=== PATIENT | female | born 1950 | race Caucasian/White ===

== ENCOUNTER 2018-08-21 12:36 | Inpatient (IN) ==
[2018-08-21] MEDS ORDERED: ONDANSETRON INJ 2 MG/ML 2 ML VIAL IV STA (13:05)
[2018-08-21] MEDS ORDERED: SODIUM CHLORIDE 0.9% 1000ML 1,000 ML IV ONE (13:05)
[2018-08-21 13:38] LABS: Basophils # (auto) 0.04 K/uL (0-0.2); Basophils % (auto) 0.6 %; Eosinophils # (auto) 0.05 K/uL (0-0.5); Eosinophils % (auto) 0.8 %; Hemoglobin 12.7 g/dL (12.0-16.0); Immature Granulocytes # (auto) 0.02 K/uL (0.00-0.02); Immature Granulocytes % (auto) 0.3 %; Lymphocytes # (auto) 1.32 K/uL (1.2-3.4); Lymphocytes % (auto) 21.3 %; Mean Corpuscular Hgb Conc 34.3 g/dL (32-36); Mean Platelet Volume 9.5 fL (7.4-10.4); Monocytes # (auto) 0.43 K/uL (0.11-0.59); Monocytes % (auto) 6.9 %; Neutrophils # (auto) 4.35 K/uL (1.4-6.5); Neutrophils % (auto) 70.1 %; Platelet Count 450 K/uL (130-400); RDW Coefficient of Variation 12.7 % (11.5-14.5); RDW Standard Deviation 35.1 fL (36.4-46.3); Red Blood Count 4.87 M/uL (4.2-5.4); White Blood Count 6.21 K/uL (4.8-10.8)
[2018-08-21 13:54] LABS: Albumin Level 3.8 gm/dl (3.4-5.0); BUN Creatinine Ratio 16.6 (10-20); Calcium 9.8 mg/dl (8.5-10.1); Est GFR (African American) 66.1
[2018-08-21 13:57] LABS: Bilirubin,Total 0.6 mg/dl (0.2-1); Globulin 3.9 gm/dl (2.5-4.0); Total Protein 7.7 gm/dl (6.4-8.2)
[2018-08-21 14:20] LABS: Appearance Urine Clear (Clear); Bilirubin Urine Negative (Negative); Blood Urine Negative (Negative); Color Urine Yellow; Glucose Urine UA Negative (Negative); Ketones Urine Negative (Negative); Leukocyte Esterase Urine Negative (Negative); Nitrite Urine Negative (Negative); Protein Urine Negative (Negative); Specific Gravity Urine 1.007 (1.000-1.030); Urobilinogen Urine Negative (Negative); pH Urine 7.5 (4.5-7.5)
--- NOTE | 2018-08-21 14:48 | XRay Report ---
XR abdomen 2V w PA chest CLINICAL HISTORY: 68 years-old Female presenting with vomiting and nausea. TECHNIQUE: PA view of the chest and supine and upright views of the abdomen were obtained. COMPARISON: None. FINDINGS: Over exposure of the PA chest portion of the exam. This limits diagnostic sensitivity of the chest ra diograph. Atherosclerosis of the aortic arch. Cardiac silhouette top normal in size. No focal opacity. No large effusion or pneumothorax. Surgical clips project at the thoracic inlet. Moderate stool burden. Nonobstructive bowel gas pattern. No gross pneumoperitoneum. Multiple calcified degenerating fibroids suggested in addition to atherosclerotic calcification. [place] pelvic phleboliths. No radiographic evidence of renal calculi. Evaluation for ureteral calculi l imited. Posterior lumbar fusion hardware. Degenerative changes of the sacroiliac joints. Two screw fixation i n the superior left acetabulum. Bilateral total hip arthroplasties. Scoliotic curvature and degenerat helena change of the lumbar spine. IMPRESSION: 1. Over exposure of the PA chest portion of the exam. This limits diagnostic sensitivity of the ches t radiograph. Allowing for this, no acute cardiopulmonary disease. 2. No radiographic evidence of acute intra-abdominal pathology. Electronically signed by: Henry Ferrer M.D. 08/21/2018 2:47 PM
--- NOTE | 2018-08-21 15:27 | History & Physical Report ---
Date of Service August 21, 2018 Assessment & Plan (1) Hyponatremia: This is a 68yo F with a PMH of recent thyroidectomy in June 2018 on Synthroid, HTN, asthma, chronic back pain on narcotics, osteoporosis and other problems listed below who presents with nausea and vomiting x 3 days and was fo und to have hyponatremia and hypokalemia. -Sodium of 124, potassium 3.0, chloride 81. Nausea & vomiting x 3 days -No known history of hyponatremia -Started on dexamethasone in case of adrenal insufficiency -Serum osm, urine osm, urine sodium pending. AM cortisol tomorrow -Received 1 L NSS in ED as well as 40 mEq KCl -Repeat BMP pending to reassess electrolytes (2) Hypokalemia: Replaced. Mag is normal at 2 (3) Acquired hypothyroidism: S/p thyroidectomy in June 2018 due to thyroid nodules -On levothyroxine 100 mcg -TSH wnl (4) HTN (hypertension): Normotensive -Continue enalaprim (5) Asthma: Stable. Continue Advair, albuterol PRN (6) Chronic low back pain: Home MS Contin ER and IR -Continue (7) Osteoporosis: Forteo injection daily, D2 50,000u every Tuesday (8) Anxiety: Valium BID PRN DVT Ppx: SQ Lovenox Code status: FULL PCP: [facility] [place] (unassigned) Dispo: Admitted to [facility]. Plan to return home once medically stable. Patient seen in collaboration with Dr. Hussein. Please see addendum. History of Present Illness Chief Complaint: nausea, vomiting, abnormal lab work Primary Care Provider: Lyudmila Antunez MD This is a 68yo F with a PMH of recent thyroidectomy in June 2018 on Synthroid, HTN, asthma, chronic back pain on narcotics, osteoporosis and other problems listed below who presents with nausea and vomiting x 3 days. Patient lives in [place] and is on an RV trip to [place]. Patient's retread supervisor called to notify regarding abnormal lab work (hyponatremia, hypochloremia) and directed patient to stop at a nearby ER. Patient has been nauseous with multiple bouts of vomiting over the past few days. Denies any fever, chills, confusion or abdominal pain. Had some constipation last week but took Dulcolax and is been having small but normal bowel movements. Does not think she has had low sodium in the past. Has not been eating regular amounts for the past week due to fear that she will feel nauseous and vomit. Feels thirsty most of the time, which is not new. Denies any lightheadedness, headache, chest pain, palpitations, shortness of breath, dysuria or lower extremity swelling. Allergies Allergy/AdvReac Type Severity Reaction Status Date / Time bee venom protein (honey bee) Allergy Anaphylaxis Verified 08/21/18 14:23 cefaclor [From Ceclor] Allergy Anaphylaxis Verified 08/21/18 14:23 cephalexin [From Keflex] Allergy Anaphylaxis Verified 08/21/18 14:23 Iodinated Contrast- Oral and Allergy Anaphylaxis Verified 08/21/18 14:23 IV Dye Penicillins Allergy Anaphylaxis Verified 08/21/18 14:23 tramadol [From Ultram] Allergy Anaphylaxis Verified 08/21/18 14:23 Home Medications Home Medications Medication Instructions Recorded Confirmed Type albuterol sulfate 2 puff INHALATION QID PRN 08/21/18 08/21/18 History cyclosporine [Restasis] 1 drp OPHTHALMIC (EYE) Q12H PRN 08/21/18 08/21/18 History diazepam 5 mg PO BID PRN 08/21/18 08/21/18 History enalapril maleate 20 mg PO DAILY 08/21/18 08/21/18 History ergocalciferol (vitamin D2) 50,000 unit PO WK 08/21/18 08/21/18 History [Vitamin D2] fluticasone propion-salmeterol 2 ea INHALATION BID 08/21/18 08/21/18 History [Advair Diskus] fluticasone propionate [Flonase 2 spray INTRANASAL DAILY 08/21/18 08/21/18 History Allergy Relief] imiquimod 1 applic TOPICAL UD 08/21/18 08/21/18 History levothyroxine 100 mcg PO DAILY 08/21/18 08/21/18 History morphine 30 mg PO Q6H PRN 08/21/18 08/21/18 History morphine 60 mg PO DAILY PRN 08/21/18 08/21/18 History teriparatide [Forteo] 20 mcg SUBCUT DAILY 08/21/18 08/21/18 History Past Med/Surg History Medical History Acquired hypothyroidism (Chronic) Anxiety (Chronic) Asthma (Chronic) Osteoporosis (Chronic) HTN (hypertension) (Chronic) Chronic low back pain (Chronic) Surgical History History of knee replacement (Chronic) H/O thyroidectomy (Chronic) June 2018 S/P hip replacement (Chronic) Family History Other Heart disease Thyroid cancer Social History Preferred Language: Palestinian Communication Ability: Effective Visual Impairment: No Limitations Hearing Ability: Normal Current Living Situation: Spouse Feels Safe at Home: Yes Smoking Status: Former smoker Hx Alcohol Use: No Hx Substance Use: No Review of Systems Review of Systems: At least ten systems reviewed and negative except as noted in the HPI. Physical Exam Physical Exam: General Appearance: WD/WN, no apparent distress, resting comfortably Head: normocephalic, atraumatic Eyes: normal inspection, PERRL, EOMI ENT: hearing grossly normal, pharynx normal (dry mucous membranes) Neck: supple, no JVD, no adenopathy Respiratory/Chest: lungs clear to auscultation. No wheezes, rales or rhonci. No respiratory distress or accessory muscle use Cardiovascular: regular rate, rhythm, no murmur, normal peripheral pulses Abdomen/GI: normal bowel sounds, soft, non-tender to palpation Extremities/Musculoskelatal: normal inspection, no calf tenderness, normal capillary refill, no pedal edema Neurologic/Psych: alert, normal mood/affect, oriented x 3 Skin: normal color, warm/dry Results & Data Vital Signs (Past 12 Hours) Vital Signs Temp Pulse Pulse Resp BP BP Pulse Ox 08/21/18 14:07 78 22 106/65 95 08/21/18 14:06 94 08/21/18 12:39 36.7 C 94 H 20 120/68 94 Laboratory Results Short CBC 08/21/18 Range/Units 13:26 WBC 6.21 (4.8-10.8) K/uL Hgb 12.7 (12.0-16.0) g/dL Hct 37.0 (37-47) % Plt Count 450 H (130-400) K/uL BMP 08/21/18 13:26 Sodium 124 L Potassium 3.0 L Chloride 81 L Carbon Dioxide 33 H BUN 17 Creatinine 1.00 Glucose 111 H Calcium 9.8 Liver Function 08/21/18 Range/Units 13:26 Total Bilirubin 0.6 (0.2-1) mg/dl AST 23 (15-37) U/L ALT 21 (12-78) U/L Alkaline Phosphatase 83 (45-117) U/L Albumin 3.8 (3.4-5.0) gm/dl Urine 08/21/18 Range/Units 14:09 Urine Color Yellow Urine Appearance Clear (Clear) Urine pH 7.5 (4.5-7.5) Ur Specific [place] 1.007 (1.000-1.030) Urine Protein Negative (Negative) Urine Glucose (UA) Negative (Negative) Diagnostic Findings Chest/abdomen XR: IMPRESSION: 1. Over exposure of the PA chest portion of the exam. This limits diagnostic sensitivity of the chest radiograph. Allowing for this, no acute cardiopulmonary disease. 2. No radiographic evidence of acute intra-abdominal pathology. ECG Rhythm: normal sinus Findings: + left axis deviation Supervising Physician Co-Signing Physician Notes I have seen and examined the patient with physician certified physician's assistant and agree with the assessment and plan as above and would like to comment that this is a 68 year old Female with known history of hypothyroidism who was informed of lab abnormalities by her retread supervisor while patient was traveling through [place] on vacation. Patient reports that she has been having poor appetite and inability to keep down food or water as in the recent past and she felt her health had changed since before the Weekend when she first became unwell. She denies recent fevers. no diarrhea. she has chronic joint pains On exam General: no acute distress Lunges: clear to auscultation bilaterally Heart : regular rate and rhythm Abdomen: soft, nontender, positive bowel sounds Extremities: no edema Hyponatremia: will likely continue IV fluids based on repeat labs Hypokalemia: will continue potassium repletion to get potassium to near goal of 4 Hypothyroidism: continue home dose levothyroxine Other management of health issues as above as documented by physician certified physician's assistant
[2018-08-21] MEDS ORDERED: POTASSIUM CHLORIDE 20 MEQ TABCR PO STA (15:41)
[2018-08-21] MEDS ORDERED: ACETAMINOPHEN 325 MG TAB PO PRN (17:20)
[2018-08-21] MEDS ORDERED: MoRPHine SULFATE IR 15 MG TAB (IMMEDIATE RELEASE) PO PRN (17:20)
[2018-08-21] MEDS ORDERED: diazePAM 5 MG TABLET PO PRN (17:20)
[2018-08-21] MEDS ORDERED: ONDANSETRON INJ 2 MG/ML 2 ML VIAL IV PRN (17:20)
[2018-08-21] MEDS ORDERED: ALBUTEROL HFA 8 GM INHALER INH PRN (17:20)
[2018-08-21] MEDS ORDERED: POLYETHYLENE (MIRALAX) 17 GM PACK PO PRN (17:20)
[2018-08-21] MEDS ORDERED: dexAMETHasone 4 MG in SYRINGE 0 ML IV ONE (17:30)
[2018-08-21 18:51] LABS: Calcium 9.2 mg/dl (8.5-10.1); Est GFR (African American) 72.2; Est GFR (Non-African American) 62.3; Potassium 3.8 mmol/L (3.5-5.1)
--- NOTE | 2018-08-21 19:11 | Emergency Department Note ---
Entered by Deloris Lopez acting as a scribe for Blayne Naranjo DO History of Present Illness General Chief complaint: Abnormal Labs/Diagnostic Testing Stated complaint: LOW SODIUM Source: patient Mode of arrival: ambulatory Limitations: no limitations History of Present Illness Onset (ago): day(s) 2 Location: abdomen Pain Consistency: + other (episode) Quality: + other (dizziness, lightheadeness) Associated symptoms: + loss of appetite, + nausea/vomiting (The patient complains of vomiting. ) and + other (The patient denies abdominal pain, urinary symptoms, and rhinorrhea. ); no chest pain, no cough and no shortness of breath The patient is a 68 year old female with a history of thyroidectomy, hip rep lacement, knee replacements, osteoporosis, hypertension, and chronic low back pain who presents to the ED with complaints of an episode of abnormally low sodium labs that onset 2 days ago. She states that she is traveling from [place]. The patient reports that she received a call from her laboratory apparatus glass grinder regarding blood work that was completed 3 days ago. The patient notes that she fasted before the blood work and developed the symptoms after. The patient complains of vomiting for 2 days and loss of appetite. She notes that she has been able to keep fluids down. The patient complains of dizziness and lightheadedness. The patient denies abdominal pain, urinary symptoms, cough, rhinorrhea, chest pain, and shortness of breath. The patient notes that her last bowel movement was this morning. She denies recent sick contacts. Home Medications Home Medications Medication Instructions Recorded Confirmed Type albuterol sulfate 2 puff INHALATION QID PRN 08/21/18 08/21/18 History cyclosporine [Restasis] 1 drp OPHTHALMIC (EYE) Q12H PRN 08/21/18 08/21/18 History diazepam 5 mg PO BID PRN 08/21/18 08/21/18 History enalapril maleate 20 mg PO DAILY 08/21/18 08/21/18 History ergocalciferol (vitamin D2) 50,000 unit PO WK 08/21/18 08/21/18 History [Vitamin D2] fluticasone propion-salmeterol 2 ea INHALATION BID 08/21/18 08/21/18 History [Advair Diskus] fluticasone propionate [Flonase 2 spray INTRANASAL DAILY 08/21/18 08/21/18 History Allergy Relief] imiquimod 1 applic TOPICAL UD 08/21/18 08/21/18 History levothyroxine 100 mcg PO DAILY 08/21/18 08/21/18 History morphine 30 mg PO Q6H PRN 08/21/18 08/21/18 History morphine 60 mg PO DAILY PRN 08/21/18 08/21/18 History teriparatide [Forteo] 20 mcg SUBCUT DAILY 08/21/18 08/21/18 History Allergies Allergy/AdvReac Type Severity Reaction Status Date / Time bee venom protein (honey bee) Allergy Anaphylaxis Verified 08/21/18 14:23 cefaclor [From Ceclor] Allergy Anaphylaxis Verified 08/21/18 14:23 cephalexin [From Keflex] Allergy Anaphylaxis Verified 08/21/18 14:23 Iodinated Contrast- Oral and Allergy Anaphylaxis Verified 08/21/18 14:23 IV Dye Penicillins Allergy Anaphylaxis Verified 08/21/18 14:23 tramadol [From Ultram] Allergy Anaphylaxis Verified 08/21/18 14:23 Past Med/Surg History Medical History Acquired hypothyroidism (Chronic) Anxiety (Chronic) Asthma (Chronic) Osteoporosis (Chronic) HTN (hypertension) (Chronic) Chronic low back pain (Chronic) Surgical History History of knee replacement (Chronic) H/O thyroidectomy (Chronic) June 2018 S/P hip replacement (Chronic) Family History Other Heart disease Thyroid cancer Social History Preferred Language: Slovak Communication Ability: Effective Visual Impairment: No Limitations Hearing Ability: Normal Amortization Schedule Clerk Required: No Beliefs That Will Affect Care: None Current Living Situation: Spouse Other Information That Helps Us Care for You: No Feels Safe at Home: Yes Safety Concerns: Feels Safe At This Time Smoking Status: Former smoker Hx Alcohol Use: No Hx Substance Use: No Review of Systems See HPI for pertinent positives & negatives. and A total of 10 systems reviewed and were otherwise negative Physical Exam Vital Signs Vital Signs - 24 hr 08/21/18 12:39 08/21/18 14:06 08/21/18 14:07 Temperature 36.7 C Temperature Source Oral Sepsis Recent Fever Within 48 Hours No Sepsis New/Unexplained Change in Mental Status No Sepsis Action Taken by Nursing No Action Required Pulse Rate 94 H Pulse Rate [Apical] 78 Respiratory Rate 20 22 Respiratory Effort / Characteristics Non-Labored Spontaneous Respiratory Depth Normal Respiratory Pattern Regular Blood Pressure 120/68 Blood Pressure [Right Arm] 106/65 Blood Pressure Mean 85 Blood Pressure Mean [Right Arm] 78 Blood Pressure Position Sitting Pulse Oximetry 94 94 95 Oxygen Delivery Method Room Air Room Air Room Air GENERAL: Sitting up in bed. Alert, well appearing, well nourished, no distress, non-toxic EYE EXAM: Normal conjunctiva. PERRL and EOM's grossly intact OROPHARYNX: no exudate, no erythema, lips, buccal mucosa, and tongue normal and mucous membranes are dry. NECK: supple, no nuchal rigidity, no adenopathy, non-tender LUNGS: Clear to auscultation. Normal chest wall mechanics HEART: no murmurs, S1 normal and S2 normal ABDOMEN: abdomen soft, non-tender, normo-active bowel sounds, no masses, no rebound or guarding. BACK: Back is symmetrical on inspection and there is no deformity, no midline tenderness, no CVA tenderness. SKIN: no rashes and no bruising UPPER EXTREMITIES: upper extremities are grossly normal. LOWER EXTREMITIES: No pitting edema. NEURO EXAM: Normal sensorium, cranial nerves II-XII grossly intact, normal speech, no gross weakness of arms, no gross weakness of legs. Course 1254: Past medical records reviewed. The patient was evaluated in room B09. A complete history and physical examination was performed. 1439: I have re-evaluated the patient. 1430: I reviewed the patient's case with Dr. Jaden Romeo. He will evaluate the patient for further management. Consultations Consultation #1: 1430: I reviewed the patient's case with Dr. Jaden Romeo. He will evaluate the patient for further management. Time: 14:30 Administered Medications Discontinued Medications Sodium Chloride (Nss 1000ml) 1,000 mls @ 999 mls/hr IV .Q1H1M ONE Stop: 08/21/18 14:05 Last Infusion: 08/21/18 15:03 Dose: 0 mls/hr Documented by: [id number] Admin: 08/21/18 14:02 Dose: 999 mls/hr Documented by: [id number] Dexamethasone 4 mg/ Syringe 1 mls @ 1 mls/min IV 1730 ONE Stop: 08/21/18 17:31 Last Admin: 08/21/18 18:33 Dose: 1 mls/min Documented by: [id number] Ondansetron HCl (Zofran) 4 mg IV NOW STA Stop: 08/21/18 13:06 Last Admin: 08/21/18 14:00 Dose: 4 mg Documented by: [id number] Potassium Chloride (Klor-Con M20) 40 meq PO NOW STA Stop: 08/21/18 15:42 Last Admin: 08/21/18 16:39 Dose: 40 meq Documented by: [id number] Medical Decision Making Differential Diagnosis Differential diagnoses: Metabolic, infection, hypo/hyperglycemia, electrolyte abnormalities, cardiac cait rces, intracerebral event, toxicologic, neurologic, as well as others were entertained. Medical Records Attestation: I reviewed the patient's medical records. Home Medications Current Medication List: was personally reviewed by me Laboratory Data Attestation: I reviewed the patient's lab results. Result diagrams: 08/21/18 13:26 08/21/18 17:55 Lab Results 08/21/18 08/21/18 08/21/18 Range/Units 13:26 13:26 13:26 WBC 6.21 (4.8-10.8) K/uL RBC 4.87 (4.2-5.4) M/uL Hgb 12.7 (12.0-16.0) g/dL Hct 37.0 (37-47) % MCV 76.0 L (80-100) fL MCH 26.1 (25-34) pg MCHC 34.3 (32-36) g/dL RDW Std Deviation 35.1 L (36.4-46.3) fL RDW Coeff of Derian 12.7 (11.5-14.5) % Plt Count 450 H (130-400) K/uL MPV 9.5 (7.4-10.4) fL Immature Gran % (Auto) 0.3 % Neut % (Auto) 70.1 % Lymph % (Auto) 21.3 % [place] % (Auto) 6.9 % Eos % (Auto) 0.8 % Baso % (Auto) 0.6 % Immature Gran # (Auto) 0.02 (0.00-0.02) K/uL Neut # (Auto) 4.35 (1.4-6.5) K/uL Lymph # (Auto) 1.32 (1.2-3.4) K/uL [place] # (Auto) 0.43 (0.11-0.59) K/uL Eos # (Auto) 0.05 (0-0.5) K/uL Baso # (Auto) 0.04 (0-0.2) K/uL Sodium 124 L (136-145) mmol/L Potassium 3.0 L (3.5-5.1) mmol/L Chloride 81 L (98-107) mmol/L Carbon Dioxide 33 H (21-32) mmol/L Anion Gap 10.0 (3-11) BUN 17 (7-18) mg/dl Creatinine 1.00 (0.6-1.2) mg/dl Est Cr Clr Drug Dosing 40.0 ml/min Est GFR ( Amer) 66.1 Est GFR (Non-Af Amer) 57.0 BUN/Creatinine Ratio 16.6 (10-20) Glucose 111 H (70-99) mg/dl Calcium 9.8 (8.5-10.1) mg/dl Magnesium 2.0 (1.8-2.4) mg/dl Total Bilirubin 0.6 (0.2-1) mg/dl AST 23 (15-37) U/L ALT 21 (12-78) U/L Alkaline Phosphatase 83 (45-117) U/L Total Protein 7.7 (6.4-8.2) gm/dl Albumin 3.8 (3.4-5.0) gm/dl Globulin 3.9 (2.5-4.0) gm/dl Albumin/Globulin Ratio 1.0 (0.9-2) Lipase 120 (73-393) U/L TSH 1.440 (0.300-4.500) uIu/ml Urine Color Urine Appearance (Clear) Urine pH (4.5-7.5) Ur Specific [place] (1.000-1.030) Urine Protein (Negative) Urine Glucose (UA) (Negative) Urine Ketones (Negative) Urine Blood (Negative) Urine Nitrite (Negative) Urine Bilirubin (Negative) Urine Urobilinogen (Negative) Ur Leukocyte Esterase (Negative) 08/21/18 Range/Units 14:09 WBC (4.8-10.8) K/uL RBC (4.2-5.4) M/uL Hgb (12.0-16.0) g/dL Hct (37-47) % MCV (80-100) fL MCH (25-34) pg MCHC (32-36) g/dL RDW Std Deviation (36.4-46.3) fL RDW Coeff of Derian (11.5-14.5) % Plt Count (130-400) K/uL MPV (7.4-10.4) fL Immature Gran % (Auto) % Neut % (Auto) % Lymph % (Auto) % [place] % (Auto) % Eos % (Auto) % Baso % (Auto) % Immature Gran # (Auto) (0.00-0.02) K/uL Neut # (Auto) (1.4-6.5) K/uL Lymph # (Auto) (1.2-3.4) K/uL [place] # (Auto) (0.11-0.59) K/uL Eos # (Auto) (0-0.5) K/uL Baso # (Auto) (0-0.2) K/uL Sodium (136-145) mmol/L Potassium (3.5-5.1) mmol/L Chloride (98-107) mmol/L Carbon Dioxide (21-32) mmol/L Anion Gap (3-11) BUN (7-18) mg/dl Creatinine (0.6-1.2) mg/dl Est Cr Clr Drug Dosing ml/min Est GFR ( Amer) Est GFR (Non-Af Amer) BUN/Creatinine Ratio (10-20) Glucose (70-99) mg/dl Calcium (8.5-10.1) mg/dl Magnesium (1.8-2.4) mg/dl Total Bilirubin (0.2-1) mg/dl AST (15-37) U/L ALT (12-78) U/L Alkaline Phosphatase (45-117) U/L Total Protein (6.4-8.2) gm/dl Albumin (3.4-5.0) gm/dl Globulin (2.5-4.0) gm/dl Albumin/Globulin Ratio (0.9-2) Lipase (73-393) U/L TSH (0.300-4.500) uIu/ml Urine Color Yellow Urine Appearance Clear (Clear) Urine pH 7.5 (4.5-7.5) Ur Specific [place] 1.007 (1.000-1.030) Urine Protein Negative (Negative) Urine Glucose (UA) Negative (Negative) Urine Ketones Negative (Negative) Urine Blood Negative (Negative) Urine Nitrite Negative (Negative) Urine Bilirubin Negative (Negative) Urine Urobilinogen Negative (Negative) Ur Leukocyte Esterase Negative (Negative) Imaging Data Radiologist's Impression: Radiology results as stated below per my review and the radiologist's interpretation: XR abdomen 2V w PA chest CLINICAL HISTORY: 68 years-old Female presenting with vomiting and nausea. TECHNIQUE: PA view of the chest and supine and upright views of the abdomen were obtained. COMPARISON: None. FINDINGS: Over exposure of the PA chest portion of the exam. This limits diagnostic sensitivity of the chest radiograph. Atherosclerosis of the aortic arch. Cardiac silhouette top normal in size. No focal opacity. No large effusion or pneumothorax. Surgical clips project at the thoracic inlet. Moderate stool burden. Nonobstructive bowel gas pattern. No gross pneumoperitoneum. Multiple calcified degenerating fibroids suggested in addition to atherosclerotic calcification. Numerous pelvic phleboliths. No radiographic evidence of renal calculi. Evaluation for ureteral calculi limited. Posterior lumbar fusion hardware. Degenerative changes of the sacroiliac joints. Two screw fixation in the superior left acetabulum. Bilateral total hip arthroplasties. Scoliotic curvature and degenerative change of the lumbar spine. IMPRESSION: 1. Over exposure of the PA chest portion of the exam. This limits diagnostic sensitivity of the chest radiograph. Allowing for this, no acute cardiopulmonary disease. 2. No radiographic evidence of acute intra-abdominal pathology. Electronically signed by: Henry Ferrer M.D. 08/21/2018 2:47 PM Dictated: 08/21/18 1443 Transcribed: 08/21/18 1443 ECG Data Attestation: I personally reviewed and interpreted this ECG as follows: Indication: other (abnormal labs) Rate (beats per minute): 80 Rhythm: sinus rhythm Findings: + other (left axis, T wave flattening in septal leads) Blood Pressure Blood Pressure Findings: Normal blood pressure MDM Narrative Patient is a 68-year-old female who presents the ER referred in by her auto claim representative for a low sodium. Patient notes that she has a history of osteoarthritis and thyroid disease who presents the ER for nausea and vomiting which is been present for the past 48 hours. She has no other complaints other than just a little weakness and nausea. No abdominal pain. Her abdominal exam is completely benign. Obstruction series was unremarkable. IV was established and blood work was obtained. Labs show no significant leukocytosis or anemia. BMP showed a hyponatremia at 124. Chloride was low as well. Bilirubin LFTs lipase and TSH was unremarkable. UA was unremarkable. Based on the patient's exam I do favor that she is most likely dehydrated. She is given IV fluids. She is updated bedside. Discussed with the hospitalist and patient will be observed overnight. Impression & Plan Hyponatremia, Osteoporosis, Weakness Discharge Plan Visit Data *Final* Discharge Date/Time: 08/21/18 16:30 Chief Complaint: Abnormal Labs/Diagnostic Testing Stated Complaint: LOW SODIUM ED Provider: Blayne Naranjo Discharge Problem: Hyponatremia, Osteoporosis, Weakness Patient Disposition: Admitted As Inpatient Discharge Instructions Interventions: ED Discharge Assessment Last Done: 08/21/18 16:30 The scribe's documentation has been prepared under my direction and personally reviewed by me in its entirety. I confirm that the note above accurately reflects all work, treatment, procedures, and medical decision making performed by me.
[2018-08-21] MEDS: SODIUM CHLORIDE 0.9% 1000ML 1,000 ML IV SCH (19:14)
[2018-08-21 20:01] LABS: Prothrombin Time 9.8 Seconds (9.0-12.0)
[2018-08-21] MEDS: FLUTICASONE/SALMETEROL 250/50 (ADVAIR) 14 PUFF/1 INHALER INH SCH (20:29)
[2018-08-21] MEDS: ENOXAPARIN INJ 30 MG/0.3 ML SYR SQ SCH (21:25)
[2018-08-22] MEDS: ZOLPIDEM TARTRATE 5 MG TAB PO PRN (02:04)
[2018-08-22] MEDS: LEVOTHYROXINE SODIUM 100 MCG TABLET PO SCH (06:02)
[2018-08-22] MEDS: SODIUM CHLORIDE 0.9% 1000ML 1,000 ML IV SCH (07:32)
[2018-08-22] MEDS ORDERED: ERGOCALCIFEROL 50,000 UNITS CAP PO SCH (09:00)
[2018-08-22] MEDS: ENALAPRIL MALEATE 10 MG TAB PO SCH (09:17)
[2018-08-22] MEDS: FLUTICASONE PROPIONATE NA SPR 16 GM BTL NAE SCH (09:19)
[2018-08-22] MEDS: FLUTICASONE/SALMETEROL 250/50 (ADVAIR) 14 PUFF/1 INHALER INH SCH ×2 (09:19→21:29)
[2018-08-22] MEDS: MoRPHine SULFATE CR 60 MG TABCR PO SCH (09:26)
[2018-08-22 09:48] LABS: Hematocrit (blood only) 35.7 % (37-47); Hemoglobin 11.8 g/dL (12.0-16.0); Mean Corpuscular Hgb Conc 33.1 g/dL (32-36); Mean Corpuscular Volume 77.6 fL (80-100); Mean Platelet Volume 9.4 fL (7.4-10.4); Platelet Count 426 K/uL (130-400); RDW Coefficient of Variation 12.9 % (11.5-14.5); RDW Standard Deviation 36.4 fL (36.4-46.3); White Blood Count 7.22 K/uL (4.8-10.8)
[2018-08-22 10:11] LABS: BUN Creatinine Ratio 16.3 (10-20); Creatinine Clr Calc Pharmacy 46.9 ml/min; Est GFR (African American) 80.5; Est GFR (Non-African American) 69.4
--- NOTE | 2018-08-22 12:03 | Hospitalist Progress Note ---
Date of Service August 22, 2018 Assessment & Plan (1) Hyponatremia: This is a 68yo F with a PMH of recent thyroidectomy in June 2018 on Synthroid, HTN, asthma, chronic back pain on narcotics, osteoporosis and other problems listed below who presents with nausea and vomiting x 3 days and was fo und to have hyponatremia and hypokalemia. Hypotonic Hyponatremia possibly from GI losses versus inadequate oral intake possible dysphagia -admission Sodium of 124, potassium 3.0, chloride 81. Nausea & vomiting x 3 days -No known history of hyponatremia -Started on dexamethasone x 1 dose in case of adrenal insufficiency -Received 1 L NSS in ED as well as 40 mEq KCl -after IV fluids 80 cc/hr from 08/21/18 to 08/22/18 morning time, the serum sodium is 131 -Patient gave permission to speak with her concrete block plant supervisor Dr. Otto at [place] [phone]. Discussed that 08/22/18 AM labs of cortisol 2.89 is low likely due to admission dexamethasone suppression, she requests that cortisol level from initial ED labs be added on if possible. -will monitor serum sodium off IV normal saline -Patient able to eat food at the bedside and no active vomiting while in the hospital but she does report difficulty with swallowing foods like eggs while she is here. will request speech and swallow evaluation and likely have a videofluroscopy swallowing study to investigate dysphagia (2) Hypokalemia: admission potassium is 3 after potassium repletion the last check potassium level on 08/22/18 is 4 (3) Acquired hypothyroidism: S/p thyroidectomy in June 2018 due to thyroid nodules -TSH 1.44 is within normal limits -continue levothyroxine 100 mcg -concrete block plant supervisor Dr. Otto at [place] [phone] (4) HTN (hypertension): Normotensive -Continue enalapril (5) Asthma: Stable. Continue Advair, albuterol PRN (6) Chronic low back pain: Home [facility] ER and IR -Continue (7) Osteoporosis: Forteo injection daily, D2 50,000u every Tuesday (8) Anxiety: Valium BID PRN DVT Ppx: SQ Lovenox Code status: FULL Disposition: remain inpatient, patient plans to return home to [place] when hospital discharge and follow up with her concrete block plant supervisor Subjective Patient awake and alert and mental baseline. discussed current sodium levels and plans. discussed by telephone concrete block plant supervisor Dr. Otto at [place] [phone]. Patient agrees for further monitoring of serum sodium levels off IV fluids. Patient able to eat food at the bedside and no active vomiting while in the hospital but she does report difficulty with swallowing foods like eggs while she is here. will request speech and swallow evaluation and likely have a videofluroscopy swallowing study to investigate dysphagia no chest pain. no shortness of breath, no neck pain. no abdomen pain. no problems with ambulation. no headache. no lightheadedness. no fever Physical Exam Constitutional: WD/WN, vitals as above Eyes: PERRL, conjunctivae normal, anicteric sclerae ENMT: external ear and nose normal, oropharynx normal Neck: trachea midline, no thyromegaly Respiratory: normal respiratory effort, lungs clear to auscultation Cardiovascular: RRR, no murmur, no edema Gastrointestinal (Abdomen): normal bowel sounds, soft, nontender, no hepatosplenomegaly Musculoskeletal: no cyanosis or clubbing, extremities motor strength 5/5 Head/Neck/Chest: normocephalic and head atraumatic Neurologic: PERRL, EOMI, accommodation nl, no face palsy, no dysarthria CN's II-XI intact bilaterally Psychiatric: A+Ox3, euthymic affect Results & Data Vital Signs (Past 12 Hours) Vital Signs Temp Pulse Pulse Resp BP Pulse Ox 08/22/18 07:38 88 08/22/18 07:04 36.7 C 88 16 134/81 96 08/22/18 03:32 36.5 C 108 H 22 140/79 93 (1) Osteoporosis Osteoporosis type: unspecified Presence of current pathological fracture: unspecified Qualified Code(s): M81.0 - Age-related osteoporosis without current pathological fracture
[2018-08-22 15:54] LABS: BUN Creatinine Ratio 16.7 (10-20); Calcium 9.5 mg/dl (8.5-10.1); Creatinine Clr Calc Pharmacy 51.8 ml/min; Est GFR (African American) 90.7; Est GFR (Non-African American) 78.2; Potassium 3.8 mmol/L (3.5-5.1)
[2018-08-22] MEDS: ENOXAPARIN INJ 30 MG/0.3 ML SYR SQ SCH (20:01)
[2018-08-23] MEDS: ZOLPIDEM TARTRATE 5 MG TAB PO PRN (02:19)
[2018-08-23] MEDS ORDERED: cycloSPORINE (RESTASIS) OP PRN (04:49)
[2018-08-23] MEDS: LEVOTHYROXINE SODIUM 100 MCG TABLET PO SCH (05:48)
[2018-08-23 08:05] LABS: Basophils # (auto) 0.11 K/uL (0-0.2); Basophils % (auto) 1.5 %; Eosinophils # (auto) 0.11 K/uL (0-0.5); Eosinophils % (auto) 1.5 %; Hemoglobin 10.5 g/dL (12.0-16.0); Immature Granulocytes # (auto) 0.01 K/uL (0.00-0.02); Immature Granulocytes % (auto) 0.1 %; Lymphocytes # (auto) 2.65 K/uL (1.2-3.4); Lymphocytes % (auto) 36.5 %; Mean Corpuscular Hgb Conc 32.8 g/dL (32-36); Mean Corpuscular Volume 78.8 fL (80-100); Mean Platelet Volume 9.6 fL (7.4-10.4); Monocytes # (auto) 0.56 K/uL (0.11-0.59); Monocytes % (auto) 7.7 %; Neutrophils # (auto) 3.83 K/uL (1.4-6.5); Neutrophils % (auto) 52.7 %; Platelet Count 344 K/uL (130-400); RDW Coefficient of Variation 13.1 % (11.5-14.5); RDW Standard Deviation 37.7 fL (36.4-46.3); Red Blood Count 4.06 M/uL (4.2-5.4); White Blood Count 7.27 K/uL (4.8-10.8)
[2018-08-23 08:30] LABS: Est GFR (African American) 89.3; Potassium 4.1 mmol/L (3.5-5.1)
[2018-08-23 08:31] LABS: BUN Creatinine Ratio 13.3 (10-20); Creatinine Clr Calc Pharmacy 51.5 ml/min
[2018-08-23 08:44] LABS: Bilirubin,Total 0.2 mg/dl (0.2-1)
[2018-08-23] MEDS: FLUTICASONE/SALMETEROL 250/50 (ADVAIR) 14 PUFF/1 INHALER INH SCH (09:11)
[2018-08-23] MEDS: FLUTICASONE PROPIONATE NA SPR 16 GM BTL NAE SCH (09:11)
[2018-08-23] MEDS: ENALAPRIL MALEATE 10 MG TAB PO SCH (09:12)
[2018-08-23] MEDS: MoRPHine SULFATE CR 60 MG TABCR PO SCH (09:18)
--- NOTE | 2018-08-23 09:24 | Hospitalist Progress Note ---
Date of Service August 23, 2018 Assessment & Plan (1) Hyponatremia: This is a 68yo F with a PMH of recent thyroidectomy in June 2018 on Synthroid, HTN, asthma, chronic back pain on narcotics, osteoporosis and other problems listed below who presents with nausea and vomiting x 3 days and was fo und to have hyponatremia and hypokalemia. Hypotonic Hyponatremia possibly from GI losses versus inadequate oral intake possible dysphagia -admission Sodium of 124, potassium 3.0, chloride 81. Nausea & vomiting x 3 days -No known history of hyponatremia -Started on dexamethasone x 1 dose in case of adrenal insufficiency -Received 1 L NSS in ED as well as 40 mEq KCl -after IV fluids 80 cc/hr from 08/21/18 to 08/22/18 morning time, the serum sodium is 131 -Patient gave permission to speak with her ping pong table assembler Dr. Otto at [place] [phone]. Discussed that 08/22/18 AM labs of cortisol 2.89 is low likely due to admission dexamethasone suppression, she requests that cortisol level from initial ED labs be added on if possible - have called the lab and that the random cortisol level of 3.4 was not done based on the original ED presentation labs -Patient able to eat food at the bedside and no active vomiting while in the hospital but she does report difficulty with swallowing foods like eggs while she is here. hopitalist physician requested speech and swallow evaluation such as videofluroscopy but patient had declined videofluroscopy as offered by speech and swallow services -was monitored off IV fluids since 08/22/18 daytime and serum sodium corrected to 138 as of 08/23/18 AM (2) Hypokalemia: admission potassium is 3 after potassium repletion the last check potassium level on 08/22/18 is 4 serum potassium on 08/23/18 is 4.1 (3) Acquired hypothyroidism: S/p thyroidectomy in June 2018 due to thyroid nodules -TSH 1.44 is within normal limits -continue levothyroxine 100 mcg -Patient will follow up as outpatient with ping pong table assembler Dr. Otto at [place] [phone] Anemia Hgb 10.5 no evidence of acute bleeding - hemodynamically stable, no blood from orfices (4) HTN (hypertension): Normotensive -Continue enalapril (5) Asthma: Stable. Continue Advair, albuterol PRN (6) Chronic low back pain: Home [facility] and IR -Continue (7) Osteoporosis: Forteo injection daily, D2 50,000u every Tuesday (8) Anxiety: Valium BID PRN DVT Ppx: SQ Lovenox Code status: FULL Disposition: discharge to home and patient to follow up with ping pong table assembler Dr. Otto at [place] [phone] remain inpatient. Patient should have repeated serum electrolytes, blood count, and thyroid function testing as needed, and possibly cortisol level testing when follow up with ping pong table assembler and primary care doctor Discharge Diagnosis Hypotonic Hyponatremia (now resolved), Hypokalemia (now resolved), Hypothyroidism, Anemia Subjective Patient doing well. awake and alert. breathing on room air. no further nausea symptoms for now. patient had declined videofluroscopy as offered by speech and swallow. serum sodium is corrected to 138. at baseline mental status. no headache. no dizziness. no shortness of breath. no chest pain. no abdominal pain Physical Exam Constitutional: WD/WN, vitals as above Eyes: PERRL, conjunctivae normal, anicteric sclerae ENMT: external ear and nose normal, oropharynx normal Neck: trachea midline, no thyromegaly Respiratory: normal respiratory effort, lungs clear to auscultation Cardiovascular: RRR, no murmur, no edema Gastrointestinal (Abdomen): normal bowel sounds, soft, nontender, no hepatosplenomegaly Musculoskeletal: no cyanosis or clubbing, extremities motor strength 5/5 Head/Neck/Chest: normocephalic and head atraumatic Neurologic: PERRL, EOMI, accommodation nl, no face palsy, no dysarthria CN 's II-XI intact bilaterally Psychiatric: A+Ox3, euthymic affect Results & Data Vital Signs (Past 12 Hours) Vital Signs Temp Pulse Pulse Resp BP Pulse Ox 08/23/18 07:17 87 08/23/18 06:56 37.1 C 80 18 157/81 H 94 08/23/18 04:00 36.7 C 89 18 151/87 H 08/23/18 03:21 94 H 08/22/18 23:00 36.7 C 95 H 18 126/67 95 (1) Osteoporosis Osteoporosis type: unspecified Presence of current pathological fracture: unspecified Qualified Code(s): M81.0 - Age-related osteoporosis without current pathological fracture
--- NOTE | 2018-08-23 09:35 | Discharge Summary ---
Date of Service August 23, 2018 Admission HPI Per Admitting Provider This is a 68yo F with a PMH of recent thyroidectomy in June 2018 on Synthroid, HTN, asthma, chronic back pain on narcotics, osteoporosis and other problems listed below who presents with nausea and vomiting x 3 days. Patient lives in [place] and is on an RV trip to [place]. Patient's title inspector called to notify regarding abnormal lab work (hyponatremia, hypochloremia) and directed patient to stop at a nearby ER. Patient has been nauseous with multiple bouts of vomiting over the past few days. Denies any fever, chills, confusion or abdominal pain. Had some constipation last week but took Dulcolax and is been having small but normal bowel movements. Does not think she has had low sodium in the past. Has not been eating regular amounts for the past week due to fear that she will feel nauseous and vomit. Feels thirsty most of the time, which is not new. Denies any lightheadedness, headache, chest pain, palpitations, shortness of breath, dysuria or lower extremity swelling. Admission Exam Per Admitting Provider General Appearance: WD/WN, no apparent distress, resting comfortably Head: normocephalic, atraumatic Eyes: normal inspection, PERRL, EOMI ENT: hearing grossly normal, pharynx normal (dry mucous membranes) Neck: supple, no JVD, no adenopathy Respiratory/Chest: lungs clear to auscultation. No wheezes, rales or rhonci. No respiratory distress or accessory muscle use Cardiovascular: regular rate, rhythm, no murmur, normal peripheral pulses Abdomen/GI: normal bowel sounds, soft, non-tender to palpation Extremities/Musculoskelatal: normal inspection, no calf tenderness, normal capillary refill, no pedal edema Neurologic/Psych: alert, normal mood/affect, oriented x 3 Skin: normal color, warm/dry Principal Diagnosis Hypotonic Hyponatremia (now resolved), Hypokalemia (now resolved), Hypothyroidism, Anemia Discharge Exam Constitutional WD/WN, vitals as above Eyes PERRL, conjunctivae normal, anicteric sclerae ENMT external ear and nose normal, oropharynx normal Respiratory normal respiratory effort, lungs clear to auscultation Cardiovascular RRR, no murmur, no edema Gastrointestinal (Abdomen) normal bowel sounds, soft, nontender, no hepatosplenomegaly Musculoskeletal no cyanosis or clubbing, extremities motor strength 5/5 Head/Neck/Chest: normocephalic and head atraumatic Neurologic PERRL, EOMI, accommodation nl, no face palsy, no dysarthria CN's II-XI intact bilaterally Psychiatric A+Ox3, euthymic affect Discharge Data Allergies Allergy/AdvReac Type Severity Reaction Status Date / Time bee venom protein (honey bee) Allergy Anaphylaxis Verified 08/21/18 14:23 cefaclor [From Ceclor] Allergy Anaphylaxis Verified 08/21/18 14:23 cephalexin [From Keflex] Allergy Anaphylaxis Verified 08/21/18 14:23 Iodinated Contrast- Oral and Allergy Anaphylaxis Verified 08/21/18 14:23 IV Dye Penicillins Allergy Anaphylaxis Verified 08/21/18 14:23 tramadol [From Ultram] Allergy Anaphylaxis Verified 08/21/18 14:23 Consultations 08/21/18 14:28 ED Decision to Admit Stat Hospital Course (1) Hyponatremia: This is a 68yo F with a PMH of recent thyroidectomy in June 2018 on Synthroid, HTN, asthma, chronic back pain on narcotics, osteoporosis and other problems listed below who presents with nausea and vomiting x 3 days and was found to have hyponatremia and hypokalemia. Hypotonic Hyponatremia possibly from GI losses versus inadequate oral intake possible dysphagia -admission Sodium of 124, potassium 3.0, chloride 81. Nausea & vomiting x 3 days -No known history of hyponatremia -Started on dexamethasone x 1 dose in case of adrenal insufficiency -Received 1 L NSS in ED as well as 40 mEq KCl -after IV fluids 80 cc/hr from 08/21/18 to 08/22/18 morning time, the serum sodium is 131 -Patient gave permission to speak with her title inspector Dr. Otto at [place] [phone]. Discussed that 08/22/18 AM labs of cortisol 2.89 is low likely due to admission dexamethasone suppression, she requests that cortisol level from initial ED labs be added on if possible - have called the lab and that the random cortisol level of 3.4 was not done based on the original ED presentation labs -Patient able to eat food at the bedside and no active vomiting while in the hospital but she does report difficulty with swallowing foods like eggs while she is here. hopitalist physician requested speech and swallow evaluation such as videofluroscopy but patient had declined videofluroscopy as offered by speech and swallow services -was monitored off IV fluids since 08/22/18 daytime and serum sodium corrected to 138 as of 08/23/18 AM (2) Hypokalemia: admission potassium is 3 after potassium repletion the last check potassium level on 08/22/18 is 4 serum potassium on 08/23/18 is 4.1 (3) Acquired hypothyroidism: S/p thyroidectomy in June 2018 due to thyroid nodules -TSH 1.44 is within normal limits -continue levothyroxine 100 mcg -Patient will follow up as outpatient with title inspector Dr. Otto at [place] [phone] Anemia Hgb 10.5 no evidence of acute bleeding - hemodynamically stable, no blood from orfices (4) HTN (hypertension): Normotensive -Continue enalapril (5) Asthma: Stable. Continue Advair, albuterol PRN (6) Chronic low back pain: Home [facility] Contin ER and IR -Continue (7) Osteoporosis: Forteo injection daily, D2 50,000u every Tuesday (8) Anxiety: Valium BID PRN DVT Ppx: SQ Lovenox Code status: FULL Disposition: discharge to home and patient to follow up with title inspector Dr. Otto at [place] [phone] remain inpatient. Patient should have repeated serum electrolytes, blood count, and thyroid function testing as needed, and possibly cortisol level testing when follow up with title inspector and primary care doctor Discharge Diagnosis Hypotonic Hyponatremia (now resolved), Hypokalemia (now resolved), Hypothy roidism, Anemia Total Time Total Time Spent Total Time Spent (In Minutes): 40 minutes Total Time Includes: Examination of the Patient, Discharge Planning, Medication Reconciliation and Communication With Other Providers Discharge Plan Discharge Items Patient Disposition: Home - Self-Care Reason For Visit: HYPONATREMIA,N/V Discharge Diagnosis: Hypotonic Hyponatremia (now resolved), Hypokalemia (now resolved), Hypothyroidism, Anemia Condition: Good Discharge Goals: Improve disease control Activity: Resume your previous activity Non-emergency contact: Specialist Call non-emergency contact if: you have any medication questions Follow-up/Referrals: Lyudmila Antunez MD [Primary Care Provider] - Diet: Regular Addtl Provider Instructions: discharge to home and patient to follow up with title inspector Dr. Otto at [place] [phone] remain inpatient. Patient should have repeated serum electrolytes, blood count, and thyroid function testing as needed, and possibly cortisol level testing when follow up with title inspector and primary care doctor Prescriptions: Continued fluticasone propion-salmeterol [Advair Diskus] 250-50 mcg/dose blister with device 2 ea inhalation BID RF: 0 enalapril maleate 20 mg tablet 20 mg PO DAILY RF: 0 levothyroxine 100 mcg tablet 100 mcg PO DAILY RF: 0 imiquimod 5 % cream in packet 1 applic topical UD RF: 0 morphine 30 mg tablet 30 mg PO Q6H PRN (Reason: Pain) RF: 0 ergocalciferol (vitamin D2) [Vitamin D2] 50,000 unit Capsule 50,000 unit PO WK RF: 0 diazepam 5 mg tablet 5 mg PO BID PRN (Reason: Anxiety) RF: 0 Restasis 0.05 % Dropperette 1 drp OPHTHALMIC (EYE) Q12H PRN (Reason: Dry Eye(S)) RF: 0 Forteo 20 mcg/dose - 600 mcg/2.4 mL pen injector 20 mcg subcut DAILY RF: 0 morphine 60 mg tablet extended release 60 mg PO DAILY PRN (Reason: Pain) RF: 0 albuterol sulfate 90 mcg/actuation Hfa Aerosol Inhaler 2 puff INHALATION QID PRN (Reason: Shortness Of Breath Or Wheezing) RF: 0 fluticasone propionate [Flonase Allergy Relief] 50 mcg/actuation [place],Suspension 2 spray INTRANASAL DAILY RF: 0 Stand-Alone Forms: [facility] Discharge Orders: Discharge Order (Routine); Ordered 08/23/18 Ordered By: Jaden Hussein Admission Data Admit Date/Time: 08/21/18 15:27 Attending Provider: Jaden Hussein Admit Provider: Jaden Hussein Primary Care Provider: Lyudmila Antunez Other Providers: Jaden Hussein Service: Telemetry Medical
== END 2018-08-23 12:50 | disposition home or self-care (01) | DRG 644 ==
LOC: ED 12:36 → 2W 15:27